=== PATIENT | male | born 1930 | race Caucasian/White ===

== ENCOUNTER 2018-09-20 15:37 | Emergency (ER) | payer OTHER ==
[2018-09-20 16:30] LABS: Absolute Lymphocytes (CBC) 1.5 K/uL (0.7-4.9); Absolute Monocytes 0.5 K/uL (0.1-1.3); Absolute Neutrophil 9.4 K/uL (1.8-8.0); Basophils % 0.8 % (0-1.3); Hematocrit 45.6 % (39.6-49.0); MPV 8.7 fL (7.6-11.3); Monocytes % 3.9 % (3.3-12.3); RBC Red Blood Cell Count 5.01 M/uL (4.33-5.43)
[2018-09-20 16:44] LABS: Protime INR 1.01
[2018-09-20 16:50] LABS: Albumin 3.6 g/dL (3.4-5.0); Bilirubin Direct 0.1 mg/dL (0-0.2); Bilirubin Total 0.5 mg/dL (0.2-1.0); CKMB Creatine Kinase MB 2.2 ng/mL (0.3-3.6); Magnesium 2.2 mg/dL (1.8-2.4); Potassium 4.5 mmol/L (3.5-5.1); Protein, Total 7.4 g/dL (6.4-8.2); Troponin (Emerg Dept Use Only) 0.03 ng/mL (0.0-0.045)
--- NOTE | 2018-09-20 17:55 | RAD REPORT ---
EXAM DESCRIPTION: CT - Head C Spine Cap Sigifredo Jaimes - 09/20/2018 5:33 pm CLINICAL HISTORY: Trauma, head and neck injury. Chest, abdomen and pelvis pain. fall COMPARISON: <Comparisons> TECHNIQUE: CT head without contrast. CT cervical spine without contrast with coronal and sagittal reformatted images. CT chest, abdomen and pelvis with IV contrast (approximately 100 mL nonionic IV contrast) with le l and sagittal reformatted images of the spine. All CT scans are performed using dose optimization technique as appropriate and may include automated exposure control or mA/KV adjustment according to patient size. FINDINGS: CT HEAD WITHOUT CONTRAST: An acute right-sided subdural hematoma is noted measuring 9 mm in maximum thickness. Small area of he morrhagic shear injury is seen along the midline of the lateral ventricles measuring 6 mm with a smal l amount of blood collecting in the posterior aspect of the right lateral ventricle indicating small volume intraventricular hemorrhage. No significant midline shift is seen. Prominent brain atrophy is noted. The paranasal sinuses and mastoids are clear. The calvarium is intact. Right frontal scalp hematoma. CT CERVICAL SPINE WITHOUT CONTRAST: No fracture or subluxation. Moderate mid and lower cervical degenerative changes present. 3 mm degene rative anterolisthesis is seen of C7 on T1. The prevertebral soft tissues are normal in thickness. CT CHEST, ABDOMEN, PELVIS WITH CONTRAST: Diffuse emphysematous changes are present throughout the lungs.Mild dilatation of the upper esophagus with fluid is seen.No pneumothorax or pericardial/pleural fluid. No evidence of intra-abdominal visceral injury, free fluid or free air. Cholelithiasis. Multiple bila teral renal cysts are present. There is a mild wedge compression deformity affecting the L1 vertebral body, chronic in appearance. N o acute compression fracture is present. Mildly comminuted packet fracture proximal right humerus is noted. IMPRESSION: Acute right-sided subdural hematoma as detailed without significant [id number] shift. Small amount intraventricular blood is also present. Mildly impacted and comminuted proximal right humerus fracture. Findings were discussed with MARANDA Fletcher in the ER 5:50 p.m. 09/20/2018 by telephone.
--- NOTE | 2018-09-20 18:02 | RAD REPORT ---
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 Diffuse osteopenia pres ent. Radiocarpal arthritic changes also noted. No acute fracture demonstrated.
--- NOTE | 2018-09-20 18:03 | RAD REPORT ---
EXAM DESCRIPTION: RAD - Humerus Right - 09/20/2018 4:56 pm CLINICAL HISTORY: fall;Pain COMPARISON: No comparisons FINDINGS: Mildly impacted fracture of the proximal right humerus is seen. No dislocation evident.
--- NOTE | 2018-09-20 18:03 | RAD REPORT ---
EXAM DESCRIPTION: RAD - Chest Single View - 09/20/2018 4:56 pm CLINICAL HISTORY: fall Chest pain. COMPARISON: No comparisons FINDINGS: Portable technique limits examination quality. Emphysematous changes are present throughout the lungs. The heart is normal in size. Proximal right h umerus fracture is present.
--- NOTE | 2018-09-20 18:08 | RAD REPORT ---
EXAM DESCRIPTION: RAD - Pelvis - 09/20/2018 4:56 pm CLINICAL HISTORY: fall Trauma, pelvic pain COMPARISON: No comparisons FINDINGS: Right total hip arthroplasty is noted. No acute fracture or dislocation seen.
[2018-09-20] MEDS ORDERED: levETIRAcetam 1,000 MG in NA CHLORIDE 0.9% 100 ML IV ONE (18:15)
[2018-09-20 18:22] LABS: Urine Bacteria <20 /HPF (NONE SEEN); Urine Culture Reflex Order NOT NEEDED; Urine Mucus 1+ /HPF (NONE SEEN)
--- NOTE | 2018-09-20 18:42 | ER ---
Nurse's Notes [facility] Name: Twan Mc Age: 88 yrs Sex: Male : 1930 Arrival Date: 09/20/2018 Time: 15:37 Bed 3 Private MD: Diagnosis: Other slipping, tripping and stumbling and falls;Proximal right humerus fracture;Traumatic subdural hemorrhage Presentation: 09/20 15:38 Presenting complaint: EMS states: coming from [facility], nursing staff saw pt on the hj floor, facedown, with R side of head hematoma, complaints of mid back to lower back pain, R shoulder pain, unwitnessed fall; unknown if there was LOC; hx of AMS due to dementia; denies taking blood thinners, BGL- 142; BP- 196/81; 18g L AC;. Transition of care: patient was received from another setting of care (long-term care facility). Onset of symptoms was September 20, 2018. Risk Assessment: Do you want to hurt yourself or someone else? Patient reports no desire to harm self or others. Initial Sepsis Screen: Does the patient meet any 2 criteria? No. Patient's initial sepsis screen is negative. Does the patient have a suspected source of infection? No. Patient's initial sepsis screen is negative. Care prior to arrival: None. 15:38 Method Of Arrival: EMS: [facility] 15:38 Acuity: ZEYAD 3 15:48 Mechanism of Injury: Fall from standing position. Trauma event details: Injury occurred in the [facility], Injury occurred: in an institution. Injury occurred: September 20, 2018. Triage Assessment: 15:50 General: Appears in no apparent distress. uncomfortable, Behavior is calm, cooperative, hj appropriate for age. Pain: Complains of pain in head, back, R shoulder. Trauma Activation: Not Applicable Physician: ED Physician; Name: ; Notified At: ; Arrived At: Physician: General Surgeon; Name: ; Notified At: ; Arrived At: Physician: Radiology; Name: ; Notified At: ; Arrived At: Physician: Respiratory; Name: ; Notified At: ; Arrived At: Physician: Lab; Name: ; Notified At: ; Arrived At: Historical: - Allergies: 15:45 Sulfa (Sulfonamide Antibiotics); hj - Home Meds: 15:45 aspirin 81 mg Oral TbEC 1 tab once daily [Active]; Claritin 10 mg Oral tab 1 tab once hj daily [Active]; clonazepam 0.5 mg oral TbDL 1 tab 3 times per day [Active]; docusate sodium 100 mg Oral cap 1 cap as needed [Active]; Ferrocite 324 mg (106 mg iron) oral tab [Active]; lisinopril 10 mg Oral tab 1 tab once daily [Active]; quetiapine 25 mg oral tab 1 tab nightly [Active]; rivastigmine tartrate 4.5 mg oral cap 1 cap 2 times per day [Active]; - PMHx: 15:45 Aneurysm; hj - PSHx: 15:45 Unable to obtain; hj - Immunization history:: Adult Immunizations up to date. - Social history:: Smoking status: Patient/guardian denies using tobacco, Patient/guardian denies using alcohol. - Immunization history: Last tetanus immunization: - up to date. - Ebola Screening: : Patient negative for fever greater than or equal to 101.5 degrees Fahrenheit, and additional compatible Ebola Virus Disease symptoms Patient denies exposure to infectious person Patient denies travel to an Ebola-affected area in the 21 days before illness onset. Screenin:45 Abuse screen: Denies threats or abuse. Denies injuries from another. Nutritional hj screening: No deficits noted. Tuberculosis screening: No symptoms or risk factors identified. Fall Risk Fall in past 12 months (25 points). Primary Survey: 15:48 NO uncontrolled hemorrhage observed. A: The patient is alert. Airway: patent, No hj supplemental oxygen in use on arrival. Oral cavity: clear, gag reflex present, Trachea midline. Breathing/Chest: Respiratory pattern: regular, Respiratory effort: spontaneous, unlabored, Breath sounds: clear, Chest inspection: symmetrical rise and fall of the chest. Circulation: Cardiac rhythm: sinus rhythm Heart tones present. Pulses: Skin color: pink, Skin temperature: warm, dry. Disability Alert. 15:50 Exposure/Environment: All clothing and personal items were removed. Forensic evidence hj collection is not deemed to be indicated at this time. Items placed in patient belonging bag. There is no evidence of uncontrolled external bleeding. No obvious injuries are noted at this time. A warming method has been applied: A warm blanket has been provided to the patient. Reassessment Airway Airway Oxygen No O2 Oral cavity Clear +Gag reflex Trachea Midline Breathing/Chest Respiratory pattern Regular Respiratory effort Spontaneous Unlabored Breath sounds Clear Chest inspection Symmetrical Circulation Heart rhythm Sinus rhythm Heart tones Present Pulses Palpable Color Mcintosh Temperature Warm Dry Disability Alert. 16:38 Reassessment Airway Airway Patent Oxygen No O2 Oral cavity Clear +Gag reflex Trachea hj Midline Breathing/Chest Respiratory pattern Regular Respiratory effort Spontaneous Unlabored Breath sounds Clear Chest inspection Symmetrical Circulation Heart rhythm Sinus rhythm Heart tones Present Pulses Palpable Color Mcintosh Temperature Warm Dry Disability Alert. Secondary Survey: 16:19 HEENT: Head Other R side hematoma Face No injury/deformity Eyes: No injury or deformity hj noted. Ears: clear Nose: clear. Gastrointestinal: No deficits noted. : No signs and/or symptoms were reported regarding the genitourinary system. Musculoskeletal: Reports pain in head, back, neck, and R shoulder. Assessment: 15:38 General: Appears in no apparent distress. uncomfortable, Behavior is calm, cooperative, hj appropriate for age. Pain: Complains of pain in head, neck, back and R shoulder. 15:38 Neuro: Level of Consciousness is awake, alert, obeys commands, Oriented to person, hj place, time, situation, Appropriate for age. EENT: No signs and/or symptoms were reported regarding the EENT system. Cardiovascular: Capillary refill < 3 seconds Patient's skin is warm and dry. Respiratory: Airway is patent Respiratory effort is even, unlabored, Respiratory pattern is regular, symmetrical. GI: No signs and/or symptoms were reported involving the gastrointestinal system. : No signs and/or symptoms were reported regarding the genitourinary system. Derm: No signs and/or symptoms reported regarding the dermatologic system. Musculoskeletal: No signs and/or symptoms reported regarding the musculoskeletal system. 15:45 Reassessment: wheeled to XRAY;. hj 17:45 Reassessment: pt back in the room; daughter in the room;. hj 18:07 Reassessment: head bleed, family aware;. Vital Signs: 15:46 BP 152 / 78; Pulse 75; Resp 18; Temp 98.2(O); Pulse Ox 95% on R/A; Weight 83.91 kg; hj Height 6 ft. 0 in. (182.88 cm); 16:20 BP 166 / 70; Pulse 74; Resp 18; Pulse Ox 100% on 2 lpm NC; hj 17:45 BP 155 / 70; Pulse 88; Resp 18; Pulse Ox 100% on 2 lpm NC; hj 18:07 BP 159 / 69; Pulse 88; Resp 18; Pulse Ox 99% on 2 lpm NC; hj 15:46 Body Mass Index 25.09 (83.91 kg, 182.88 cm) Pacific Coma Score: 15:49 Eye Response: spontaneous(4). Verbal Response: oriented(5). Motor Response: obeys hj commands(6). Total: 15. Trauma Score (Adult): 15:49 Eye Response: spontaneous(1); Verbal Response: oriented(1); Motor Response: obeys hj commands(2); Systolic BP: > 89 mm Hg(4); Respiratory Rate: 10 to 29 per min(4); Pacific Score: 15; Trauma Score: 12 ED Course: 15:37 Patient arrived in ED. hj 15:41 Triage completed. hj 15:47 Arm band placed on right wrist. hj 15:51 Ludin Ibrahim PA is PHCP. cp 15:51 Steven Vincent MD is Attending Physician. cp 15:52 Patient has correct armband on for positive identification. Bed in low position. Call light in reach. Side rails up X 1. 15:52 Patient maintains SpO2 saturation greater than 95% on room air. hj 15:57 Thermoregulation: warm blanket given to patient. hj 15:58 Kareem Mcmanus, RN is Primary Nurse. hj 16:04 Radiology exam delayed due to lab results not completed at this time. (BUN/Creatinine). vm2 16:11 EKG done, by process controls technician. reviewed by Ludin LOW. sm3 16:25 Initial lab(s) drawn, by mt, sent to lab. Inserted saline lock: 20 gauge in right pc1 antecubital area, using aseptic technique. Blood collected. 16:[address] via stretcher. nj 16:55 XRAY Chest (1 view) In Process Unspecified. EDMS 16:55 XRAY Humerus RIGHT In Process Unspecified. EDMS 16:55 XRAY Pelvis In Process Unspecified. EDMS 16:56 XRAY Hand RIGHT 3 View In Process Unspecified. EDMS 17:29 Inserted saline lock: 22 gauge in right forearm, using aseptic technique. hj 17:33 CT Traumagram (Head C Spine CAP W Con) In Process Unspecified. EDMS 17:55 Straight cath inserted, using sterile technique, Specimen obtained. 15 Fr Returned dh3 clear yellow urine. Patient tolerated well. 60mL. 18:14 No provider procedures requiring assistance completed. Patient transferred, IV remains hj in place. intact. 18:30 Coud inserted, using sterile technique, 18 Fr. To gravity drainage. Patient tolerated dh3 well. no urine return. 18:43 Sling applied to right arm. dh3 Administered Medications: 18:19 Drug: Keppra 1000 mg Route: IV; Rate: calculated rate; Site: right forearm; hj 18:20 Follow up: IV Status: Infusion continued upon admission hj 18:37 Drug: morphine 2 mg Route: IVP; Site: right forearm; hj 18:37 Follow up: Response: No adverse reaction; Pain is decreased hj 18:37 Drug: Zofran 4 mg Route: IVP; Site: right forearm; hj 18:38 Follow up: Response: No adverse reaction; Nausea is decreased hj Intake: 18:47 PO: 50ml; Total: 50ml. Output: 18:47 Urine: 100ml (Koenig); Total: 100ml. Outcome: 18:15 Transferred by ground EMS to [facility], Transfer form completed. X-rays sent hj w/ patient. 18:15 Condition: stable 18:15 Instructed on the need for transfer, Demonstrated understanding of instructions. 18:42 ER care complete, transfer ordered by . [email or web address] 18:48 Patient's length of stay in the Emergency Department was greater than 2 hours. hj transferPatient's length of stay extended due to 19:02 Patient left the ED. Signatures: Dispatcher [employer] EDTX Kareem Mcmanus RN RN Ludin Gómez PA PA cp Jordan, Nathan nj McGuire, Victoria 2 Yari Castellanos 3 Elvia Duran 3 Francesco Metcalf [facility] Corrections: (The following items were deleted from the chart) 18:44 17:55 Straight cath inserted, using sterile technique, Specimen obtained. 15 Fr dh3 Returned clear yellow urine. Patient tolerated well. dh3
--- NOTE | 2018-09-20 18:43 | EDPHYS ---
Physician Documentation [facility] Name: Twan Mc Age: 88 yrs Sex: Male : 1930 Arrival Date: 09/20/2018 Time: 15:37 Bed 3 Private MD: ED Physician Steven Vincent HPI: 09/20 16:05 This 88 yrs old Male presents to ER via EMS with complaints of Fall Injury. cp 16:05 Details of fall: The patient fell from an upright position, and struck a tile surface. cp Onset: The symptoms/episode began/occurred at an unknown time. Associated injuries: The patient sustained injury to the head, contusion, hematoma, swelling, tenderness, right shoulder. Severity of symptoms: in the emergency department the symptoms are unchanged. 16:05 Patient is a resident of [facility] and was found face down on ground by nursing cp staff. Unwitnessed fall and unknown length of time on ground. Historical: - Allergies: 15:45 Sulfa (Sulfonamide Antibiotics); hj - Home Meds: 15:45 aspirin 81 mg Oral TbEC 1 tab once daily [Active]; Claritin 10 mg Oral tab 1 tab once hj daily [Active]; clonazepam 0.5 mg oral TbDL 1 tab 3 times per day [Active]; docusate sodium 100 mg Oral cap 1 cap as needed [Active]; Ferrocite 324 mg (106 mg iron) oral tab [Active]; lisinopril 10 mg Oral tab 1 tab once daily [Active]; quetiapine 25 mg oral tab 1 tab nightly [Active]; rivastigmine tartrate 4.5 mg oral cap 1 cap 2 times per day [Active]; - PMHx: 15:45 Aneurysm; hj - PSHx: 15:45 Unable to obtain; hj - Immunization history:: Adult Immunizations up to date. - Social history:: Smoking status: Patient/guardian denies using tobacco, Patient/guardian denies using alcohol. - Immunization history: Last tetanus immunization: - up to date. - Ebola Screening: : Patient negative for fever greater than or equal to 101.5 degrees Fahrenheit, and additional compatible Ebola Virus Disease symptoms Patient denies exposure to infectious person Patient denies travel to an Ebola-affected area in the 21 days before illness onset. ROS: 16:08 Constitutional: Negative for fever. cp 16:08 MS/extremity: Positive for decreased range of motion, deformity, pain, tenderness, of cp the right shoulder. 16:08 Neuro: Negative for altered mental status. 16:08 Unable to obtain ROS due to baseline dementia. Exam: 16:10 Constitutional: The patient appears in no acute distress, alert, awake, cp non-diaphoretic, non-toxic, well developed, well nourished. 16:10 Head/face: Noted is contusion, that is superficial, of the forehead, ecchymosis, that cp is mild, of the forehead, swelling, that is mild, of the forehead. 16:10 Eyes: Periorbital structures: appear normal, Pupils: equal, round, and reactive to light and accomodation, Extraocular movements: intact throughout, Conjunctiva: normal, no exudate, no injection, Sclera: no appreciated abnormality, Lids and lashes: appear normal, bilaterally. 16:10 ENT: External ear(s): are unremarkable, Ear canal(s): are normal, clear, TM's: dullness, bilaterally, Nose: is normal, Mouth: Lips: moist, Oral mucosa: moist, Posterior pharynx: Airway: no evidence of obstruction, patent, Voice: is normal. 16:10 Neck: C-spine: C-collar placed ELECTRONIC TRANSACTION IMPLEMENTER, Back board ELECTRONIC TRANSACTION IMPLEMENTER Trachea: is midline with no obvious abnormalities. 16:10 Chest/axilla: Inspection: normal, Palpation: is normal, no crepitus, no tenderness. 16:10 Cardiovascular: Rate: normal, Rhythm: regular, Edema: is not appreciated, JVD: is not appreciated. 16:10 Respiratory: the patient does not display signs of respiratory distress, Respirations: normal, no use of accessory muscles, no retractions, no splinting, no tachypnea, labored breathing, is not present, Breath sounds: are clear throughout, no decreased breath sounds, no stridor, no wheezing. 16:10 Abdomen/GI: Inspection: abdomen appears normal, Bowel sounds: active, all quadrants, Palpation: abdomen is soft and non-tender, in all quadrants. 16:10 Back: pain, that is mild, of the lumbar area, vertebral tenderness, Straight leg raises: of both lower extremities does not illicit pain. 16:10 Musculoskeletal/extremity: Pulses: noted to be 2+ in the right radial artery and left radial artery, Joints: All joints are normal except the right shoulder displays deformity, limited range of motion, painful range of motion, swelling, tenderness. 16:10 Skin: cellulitis, is not appreciated, no rash present. 16:10 Neuro: Orientation: no acute changes, per EMS, Mentation: no acute changes, per EMS, Motor: moves all fours, strength is normal, Sensation: no obvious gross deficits. 16:11 ECG was reviewed by the Attending Physician. Vital Signs: 15:46 BP 152 / 78; Pulse 75; Resp 18; Temp 98.2(O); Pulse Ox 95% on R/A; Weight 83.91 kg; hj Height 6 ft. 0 in. (182.88 cm); 16:20 BP 166 / 70; Pulse 74; Resp 18; Pulse Ox 100% on 2 lpm NC; hj 17:45 BP 155 / 70; Pulse 88; Resp 18; Pulse Ox 100% on 2 lpm NC; hj 18:07 BP 159 / 69; Pulse 88; Resp 18; Pulse Ox 99% on 2 lpm NC; hj 15:46 Body Mass Index 25.09 (83.91 kg, 182.88 cm) Alicia Coma Score: 15:49 Eye Response: spontaneous(4). Verbal Response: oriented(5). Motor Response: obeys hj commands(6). Total: 15. Trauma Score (Adult): 15:49 Eye Response: spontaneous(1); Verbal Response: oriented(1); Motor Response: obeys hj commands(2); Systolic BP: > 89 mm Hg(4); Respiratory Rate: 10 to 29 per min(4); Alicia Score: 15; Trauma Score: 12 MDM: 15:59 Patient medically screened. 18:20 Data reviewed: vital signs, nurses notes, lab test result(s), EKG, radiologic studies, cp CT scan, plain films. Test interpretation: by ED physician or midlevel provider: ECG, plain radiologic studies. 09/20 16:01 Order name: Basic Metabolic Panel; Complete Time: 16:57 09/20 16:57 Interpretation: Normal except: GLUC 114; GFR 72. 09/20 16:01 Order name: CBC with Diff; Complete Time: 16:51 09/20 16:57 Interpretation: Normal except: WBC 11.7; ALRISSA% 80.3; LYM% 13.0; NEUT A 9.4. cp 02/20 16:01 Order name: LFT's; Complete Time: 16:57 cp 02/20 16:01 Order name: Magnesium; Complete Time: 16:57 cp 02/20 16:01 Order name: NT PRO-BNP; Complete Time: 16:57 cp 0220 16:01 Order name: PT-INR; Complete Time: 16:51 cp 02/ 16:01 Order name: Troponin (emerg Dept Use Only); Complete Time: 16:57 cp 02 16:01 Order name: XRAY Chest (1 view); Complete Time: 18:04 cp / 16:01 Order name: XRAY Humerus RIGHT; Complete Time: 18:04 cp / 16:01 Order name: XRAY Pelvis; Complete Time: 18:55 cp 02 16:01 Order name: Ckmb; Complete Time: 16:57 cp 09/20 16:01 Order name: CK; Complete Time: 16:57 cp 09/20 16:01 Order name: Urine Microscopic Only; Complete Time: 18:55 cp 02/20 18:56 Interpretation: Normal except: URBC 5-10; SQEPI 10-20. cp 02/ 18:42 Order name: Urine Dipstick--Ancillary (enter results) bd 09/20 16:01 Order name: EKG; Complete Time: 16:02 cp 09/20 16:01 Order name: Cardiac monitoring; Complete Time: 16:05 cp 09/20 16:01 Order name: EKG - Nurse/Tech; Complete Time: 16:05 cp 09/20 16:01 Order name: IV Saline Lock; Complete Time: 16:05 cp 09/20 16:01 Order name: Labs collected and sent; Complete Time: 16:45 cp 09/20 16:01 Order name: O2 Per Protocol; Complete Time: 16:06 cp 20 16:01 Order name: O2 Sat Monitoring; Complete Time: 16:06 cp 20 16:01 Order name: Urine Dipstick-Ancillary (obtain specimen); Complete Time: 17:56 cp 09/20 16:01 Order name: Cath; Complete Time: 17:56 cp 09/20 16:02 Order name: CT Traumagram (Head C Spine CAP W Con); Complete Time: 18:04 cp 09/20 16:02 Order name: XRAY Hand RIGHT 3 View; Complete Time: 18:04 cp 09/20 17:54 Order name: Sling; Complete Time: 18:06 cp 09/20 17:57 Order name: Wound Care; Complete Time: 18:05 cp 09/20 18:08 Order name: Koenig; Complete Time: 18:36 EC:11 Rate is 82 beats/min. Rhythm is regular. GA interval is normal. QRS interval is normal. cp QT interval is normal. Interpreted by me. Reviewed by me. Administered Medications: 18:19 Drug: Keppra 1000 mg Route: IV; Rate: calculated rate; Site: right forearm; hj 18:20 Follow up: IV Status: Infusion continued upon admission hj 18:37 Drug: morphine 2 mg Route: IVP; Site: right forearm; hj 18:37 Follow up: Response: No adverse reaction; Pain is decreased hj 18:37 Drug: Zofran 4 mg Route: IVP; Site: right forearm; hj 18:38 Follow up: Response: No adverse reaction; Nausea is decreased Disposition: 18:45 Chart complete. 09/21 07:15 Co-signature as Attending Physician, Steven Vincent MD Available for consultation at ps1 all times. . Disposition: 09/20/18 18:42 Transfer ordered to [facility]. Diagnosis are Other slipping, tripping and stumbling and falls, Proximal right humerus fracture, Traumatic subdural hemorrhage. - Reason for transfer: Higher level of care. - Accepting physician is DR Catrachito Willett. - Condition is Stable. - Problem is new. - Symptoms have improved. Signatures: Dispatcher [employer] EDTX Kareem Mcmanus RN RN Ludin Gómez PA PA cp Singer, Phillip, MD MD ps1 Corrections: (The following items were deleted from the chart) 09/20 19:02 18:42 09/20/2018 18:42 Transfer ordered to [facility]. hj Diagnosis is Other slipping, tripping and stumbling and falls; Proximal right humerus fracture; Traumatic subdural hemorrhage. Reason for transfer: Higher level of care. Accepting physician is DR Catrachito Willett. Condition is Stable. Problem is new. Symptoms have improved. cp
[2018-09-20] MEDS ORDERED: ONDANSETRON 4 MG/2 ML VIAL ONE (18:46)
[2018-09-20] MEDS ORDERED: MORPHINE 2 MG/ML SYR ONE (18:46)
[2018-09-20 19:28] LABS: Urine Blood TRACE (NEG); Urine Glucose NEGATIVE (NEG); Urine Protein 1+ (NEG); Urine Specific Gravity 1.025 (1.005-1.030); Urine pH 5.5 (5.0-7.0)
[2018-09-20 20:26] VITALS: TEMP 98.2
[2018-09-20 20:31] VITALS: BP 159/69; O2SAT 99
--- NOTE | 2018-09-21 07:02 | EKG ---
Test Date: 2018-09-20 Test Time: 16:06:57 Rock Singer: MICHAEL MEASUREMENT RESULTS: Intervals: Rate: 82 HI: 170 QRSD: 94 QT: 414 QTc: 483 [place]: P: 88 HI: 170 QRS: -37 T: 65 INTERPRETIVE STATEMENTS: Sinus rhythm with frequent premature ventricular complexes Left axis deviation Nonspecific ST and T wave abnormality Prolonged QT Abnormal ECG Compared to ECG 05/25/2017 09:05:46 Ventricular premature complex(es) now present Left-axis deviation now present ST (T wave) deviation now present Prolonged QT interval now present Myocardial infarct finding no longer present Electronically Signed On 09-21-18 07:02:06 PERSONAL PROPERTY APPRAISER by Oleg Brown
== END 2018-09-20 19:02 | disposition short-term general hospital (02) ==
LOC: ER 15:37
DX: S42.201A Unspecified fracture of upper end of right humerus, initial encounter for closed fracture (principal); S06.5X0A Traumatic subdural hemorrhage without loss of consciousness, initial encounter; W18.39XA Other fall on same level, initial encounter; Y93.9 Activity, unspecified; Y92.099 Unspecified place in other non-institutional residence as the place of occurrence of the external cause; Z79.82 Long term (current) use of aspirin; Z88.2 Allergy status to sulfonamides
CPT/HCPCS: 36415; 51702; 70450; 71045; 71260; 72125; 72170; 73060; 73130; 74177; 80048; 80076; 82550; 82553; 83735; 83880; 84484; 85025; 85610; 93005; 96374; 96375; 99285; J1953; J2270; J2405; Q9967; 81003; 81015